=== PATIENT | male | born 1980 | race Caucasian/White ===

== ENCOUNTER 2017-04-12 07:52 | Outpatient (CLI) | payer BC | END 2017-04-12 07:53 | disposition home or self-care (01) | LOC: BICMAMMO 07:52 | PROVIDERS: ATTEND Family Medicine | DX: N63.20 Unspecified lump in the left breast, unspecified quadrant (principal) | CPT/HCPCS: 77066; G0204; G0279 ==

== ENCOUNTER 2018-11-24 08:36 | Outpatient (CLI) | payer BC ==
--- NOTE | 2018-11-24 08:49 | RAD ---
XR Chest Pa Lat STANDARD HISTORY: Shortness of breath, chest pain COMPARISON: None FINDINGS: The heart size is normal. The lungs are well expanded without focal areas of consolidation, pneumothorax or pleural effusions. IMPRESSION: No radiographic evidence of acute cardiopulmonary process.
== END 2018-11-24 08:37 | disposition home or self-care (01) ==
LOC: BICRAD 08:36
PROVIDERS: ATTEND Family Medicine
DX: R06.02 Shortness of breath (principal)
CPT/HCPCS: 36415; 71046; 80053; 80061; 83036; 84443; 85025

== ENCOUNTER 2019-03-11 13:05 | Outpatient (CLI) | payer BC ==
--- NOTE | 2019-03-11 14:24 | ULT ---
ULTRASOUND RETROPERITONEUM COMPLETE: (RENAL) DATE: 03/11/2019 HISTORY: 38 year old male with chronic kidney disease stage III. FINDINGS: The right kidney measures 9 x 4.5 x 4 cm. The left kidney measures 9 x 4 x 4.5 cm. Both kidneys have normal parenchymal echogenicity. There is no hydronephrosis. No moderate sized or large renal cystic or solid renal lesion is identified. Cursory images of the urinary bladder demonstrate no gross abnormality. Bladder volume 65 mL. IMPRESSION: 1. Bilateral kidneys are somewhat small for age. 2. No other abnormality.
== END 2019-03-11 13:06 | disposition home or self-care (01) ==
LOC: BICULT 13:05
PROVIDERS: ATTEND Internal Medicine Nephrology
DX: N18.3 Chronic kidney disease, stage 3 (moderate) (principal)
CPT/HCPCS: 36415; 76770; 80048; 81001; 82570; 84156; 86803; 87340

== ENCOUNTER 2019-03-23 15:58 | Outpatient (CLI) | payer BC ==
--- NOTE | 2019-03-23 17:31 | RAD ---
PA AND LATERAL CHEST: Date: 03/23/19 HISTORY: Chronic renal disease, Stage III. Possible pneumonia, cough and congestion. COMPARISON: 11/24/18 study. FINDINGS: Heart size and mediastinum are within normal limits. Lungs are clear of infiltrates. No significant b angely findings. IMPRESSION: No active intrathoracic disease. POS: [facility]
== END 2019-03-23 15:59 | disposition home or self-care (01) ==
LOC: BICRAD 15:58
PROVIDERS: ATTEND Internal Medicine Nephrology
DX: N18.3 Chronic kidney disease, stage 3 (moderate) (principal); R05 Cough
CPT/HCPCS: 71046

== ENCOUNTER 2022-05-21 17:30 | Outpatient (CLI) | payer BC | END 2022-05-21 17:31 | LOC: SLEEPLAB 17:30 | PROVIDERS: ATTEND Internal Medicine | DX: G47.33 Obstructive sleep apnea (adult) (pediatric) (principal) | CPT/HCPCS: 95800 ==

== ENCOUNTER 2022-07-18 20:02 | Observation (INO) | payer BC ==
[2022-07-18] MEDS ORDERED: LORazepam 2 MG/ML SYR.(CARPUJECT) ONE (20:30)
[2022-07-18 20:39] LABS: #Basophils 0.1 thou/uL (0.0-0.2); #Eosinphils 0.2 thou/uL (0.0-0.7); #Lymphocytes 2.8 thou/uL (1.20-3.40); #Monocytes 1.4 thou/uL (0.11-0.59); #Neutrophils 9.4 thou/uL (1.40-6.50); %Basophils 0.5 % (0.0-1.0); %Eosinophils 1.6 % (0.0-10.0); %Lymphocytes 19.9 % (21.0-51.0); %Monocytes 10.4 % (0.0-10.0); %Neutrophils 67.6 % (42.0-75.0); Hemoglobin 14.9 g/dL (14.0-18.0); Mean Corpuscular HGB CONC 35.2 g/dL (32.0-36.0); Mean Corpuscular Hemoglobin 33.2 pg (27.0-31.0); Mean Corpuscular Volume 94.3 fl (78.0-98.0); Platelet Count 356 10x3/uL (130-400); RBC Distribution Width 12.2 % (11.5-14.5); Red Blood Cell (RBC) Count 4.49 mill/uL (4.70-6.10); White Blood Cell (WBC) Count 13.9 10x3/uL (4.8-10.8)
[2022-07-18 20:59] LABS: ALT (SGPT) 32 U/L (8-55); AST (SGOT) 24 U/L (5-34); Albumin 3.8 g/dL (3.5-5.0); Alkaline Phosphatase 77 U/L (40-110); Anion Gap 14 mmol/L (10-20); BUN (Urea Nitrogen) 11 mg/dL (8.9-20.6); Bilirubin, Total 0.3 mg/dL (0.2-1.2); Calc. Creatinine Clearance 0 mL/min (70-130); Calcium 8.2 mg/dL (7.8-10.44); Carbon Dioxide 24 mmol/L (22-29); Chloride 103 mmol/L (98-107); Estimated GFR 51; Globulin 2.9 g/dL (2.4-3.5); Glucose 170 mg/dL (70-105); Potassium 3.5 mmol/L (3.5-5.1); Protein, Total 6.7 g/dL (6.0-8.3); Sodium 137 mmol/L (136-145)
[2022-07-19 01:18] VITALS: BMI 32.1
[2022-07-19 03:37] LABS: #Basophils 0.1 thou/uL (0.0-0.2); #Eosinphils 0.3 thou/uL (0.0-0.7); #Lymphocytes 2.7 thou/uL (1.20-3.40); #Monocytes 1.3 thou/uL (0.11-0.59); #Neutrophils 7.8 thou/uL (1.40-6.50); %Basophils 0.7 % (0.0-1.0); %Eosinophils 2.3 % (0.0-10.0); %Lymphocytes 22.3 % (21.0-51.0); %Monocytes 10.9 % (0.0-10.0); %Neutrophils 63.7 % (42.0-75.0); Hemoglobin 14.1 g/dL (14.0-18.0); Mean Corpuscular Hemoglobin 33.2 pg (27.0-31.0); Mean Corpuscular Volume 94.7 fl (78.0-98.0); Mean Platelet Volume 6.9 fL (7.4-10.4); Platelet Count 346 10x3/uL (130-400); RBC Distribution Width 12.3 % (11.5-14.5); Red Blood Cell (RBC) Count 4.24 mill/uL (4.70-6.10); White Blood Cell (WBC) Count 12.2 10x3/uL (4.8-10.8)
[2022-07-19 03:56] LABS: Anion Gap 11 mmol/L (10-20); BUN (Urea Nitrogen) 15 mg/dL (8.9-20.6); Calc. Creatinine Clearance 105 mL/min (70-130); Calcium 7.9 mg/dL (7.8-10.44); Carbon Dioxide 27 mmol/L (22-29); Chloride 105 mmol/L (98-107); Estimated GFR 62; Glucose 117 mg/dL (70-105); Sodium 139 mmol/L (136-145)
[2022-07-19] MEDS ORDERED: Ondansetron PF 4 MG/2 ML Vial IVP PRN (08:21)
[2022-07-19] MEDS ORDERED: Ondansetron ODT 4 MG TAB PO PRN (08:21)
[2022-07-19] MEDS ORDERED: Acetaminophen 325 MG TAB PO PRN (08:21)
[2022-07-19] MEDS ORDERED: Sodium Chloride 0.9% 1,000 ML IV SCH (08:45)
[2022-07-19] MEDS ORDERED: GoLYTELY 4,000 ml Bottle PO SCH (10:45)
[2022-07-19] MEDS ORDERED: Lorazepam 2 MG/ML VIAL SLOW IVP SCH (11:15)
[2022-07-19] MEDS ORDERED: PROPOFOL 200 MG/20 ML VIAL ONE (16:50)
[2022-07-19] MEDS ORDERED: Lidocaine 1% PF 5 ML VIAL ONE (16:50)
[2022-07-19] MEDS ORDERED: Promethazine HCl 25 MG/ML VIAL IM PRN (18:27)
[2022-07-19] MEDS ORDERED: Ondansetron HCl/PF 4 MG/2 ML Vial IVP PRN (18:27)
[2022-07-19 19:30] VITALS: BP 119/74
[2022-07-19 20:25] VITALS: TEMP 97.4
== END 2022-07-19 21:19 | disposition home or self-care (01) ==
LOC: ERS 20:02 → ERHOLD 23:02 → T4-B 07-19 08:30
PROVIDERS: ADMIT Physician Assistant; ATTEND Nurse Practitioner Family
PROC: 0DJD8ZZ Inspection of Lower Intestinal Tract, Via Natural or Artificial Opening Endoscopic (ICD-10-PCS; principal; 2022-07-19)
DX: K91.840 Postprocedural hemorrhage of a digestive system organ or structure following a digestive system procedure (principal); K64.4 Residual hemorrhoidal skin tags; I10 Essential (primary) hypertension; Z79.899 Other long term (current) drug therapy; Z86.010 Personal history of colon polyps; Z80.0 Family history of malignant neoplasm of digestive organs; Y83.8 Other surgical procedures as the cause of abnormal reaction of the patient, or of later complication, without mention of misadventure at the time of the procedure
CPT/HCPCS: 36415; 74176; 80048; 80053; 85025; 86850; 86900; 86901; 94760; 96374; 96375; 96376; G0378; J2060; J2405; J2704; J7050

== ENCOUNTER 2022-10-13 22:43 | Emergency (ER) | payer BC | END 2022-10-14 02:30 | disposition left against medical advice (07) | LOC: ERS 22:43 | DX: Z53.21 Procedure and treatment not carried out due to patient leaving prior to being seen by health care provider (principal) ==

== ENCOUNTER 2022-10-16 09:55 | Outpatient (CLI) | payer BC | END 2022-10-16 09:56 | disposition home or self-care (01) | LOC: BICRAD 09:55 | PROVIDERS: ATTEND Otolaryngology Otolaryngic Allergy | DX: G47.33 Obstructive sleep apnea (adult) (pediatric) (principal) | CPT/HCPCS: 70360; 71046 ==

== ENCOUNTER 2023-04-11 17:00 | Outpatient (CLI) | payer BC | END 2023-04-11 17:01 | disposition home or self-care (01) | LOC: SLEEPLAB 17:00 | PROVIDERS: ATTEND Internal Medicine Critical Care Medicine | DX: G47.33 Obstructive sleep apnea (adult) (pediatric) (principal); I12.9 Hypertensive chronic kidney disease with stage 1 through stage 4 chronic kidney disease, or unspecified chronic kidney disease; N18.30 Chronic kidney disease, stage 3 unspecified; R22.2 Localized swelling, mass and lump, trunk | CPT/HCPCS: 95810; 95977 ==